=== PATIENT | female | born 1995 | race Caucasian/White ===

== ENCOUNTER 2021-12-28 18:16 | Emergency (ER) | payer BC ==
--- OUTSIDE RECORDS SUMMARY | 2021-12-28 18:19 | XMS REPORT | Continuity of Care Document ---
:[address] [facility] t Address [address] [place] [address] Care Team Providers Name Role Phone MARGAUX CARTER Primary Care Physician Unavailable GERARDO KIRKPATRICK Attending Clinician Unavailable Do More Attending Clinician DO SWEENEY Attending Clinician Unavailable Payers Payer Name Policy Type Policy Number Effective Date Expiration Date [facility] [id number] 2020 00:00:00 Problems Condition Condition Condition Status Onset Resolution Last Treating Co mments Source Name Details Category Date Date Treatment Clinician Date Acute Acute Disease Active NPI:183 midline midline 4-27 [id number] low back low back 00:00: pain with pain with 00 bilateral bilateral sciatica sciatica Sacral Sacral Disease Active NPI:183 pain pain 4-27 [id number] 00:00: 00 Attention Attention Disease Active NPI :183 deficit deficit 7-13 [id number] disorder disorder 00:00: (ADD) (ADD) 00 without without hyperactiv hyperactiv ity ity Allergies, Adverse Reactions, Alerts Allergy Allergy Status Severity Reaction(s) Onset Inactive Treating Comm ents Source Name Type Date Date Clinician Amoxicil Drug Active Other - See NPI :183 carter Intolera comments 12-14 [id number] 1 nce 00:00: 00 AMOXICIL DRUG Active Med Other-Cmnt NPI: 183 CARTER INGREDI 24 [id number] 00:00: 00 Social History Social Habit Start Date Stop Date Quantity Comments Source History SDOH NPI:[id number] Alcohol Frequency History SDOH NPI:[id number] 81 Alcohol Std Drinks History SDOH NPI:[id number] 81 Alcohol Binge Exposure to 2021-12-07 2021-12-17 Not sure NPI:[id number] 1 SARS-CoV-2 (event) 00:00:00 14:27:00 Alcohol intake 2021-12-14 2021-12-14 Current drinker of MAIL SORTER I:[id number] 00:00:00 00:00:00 alcohol (finding) Alcohol Comment 2015-11-06 2015-11-06 occasional NPI:[id number] 00:00:00 00:00:00 Tobacco use and 2015-11-06 2015-11-06 Never used NPI:[id number] exposure 00:00:00 00:00:00 Sex [birth year] NPI:[id number] 00:00:00 00:00:00 Smoking Status Start Date Stop Date Source Never smoker Medications Ordered Filled Start Stop Current Ordering Indication Dosage Frequency Signature Comments Components Source Medication Medication Date Date Medication? Clinician (SIG) Name Name cyclobenzap 2021- Yes [id number] 7.5mg Take 1 NPI:183 rine 7.5 mg 4-27 05-12 tablet by 13 [id number] tablet 00:00: 04:59 mouth 3 00 :00 (three) times daily as needed for Muscle Spasms for up to 14 days. cyclobenzap 2021- Yes [id number] 7.5mg Take 1 NPI:183 rine 7.5 mg 4-27 05-12 tablet by 13 06732 tablet 00:00: 04:59 mouth 3 00 :00 (three) times daily as needed for Muscle Spasms for up to 14 days. lidocaine 5 2021- Yes [id number] 1{patch Apply 1 NPI:183 % (700 4-27 05-05 } Patch to [id number] mg/patch) 00:00: 04:59 area(s) 2 patch 00 :00 (two) times daily for 14 doses. lidocaine 5 2021- Yes [id number] 1{patch Apply 1 NPI:183 % (700 4-27 05-05 } Patch to [id number] mg/patch) 00:00: 04:59 area(s) 2 patch 00 :00 (two) times daily for 14 doses. methylPREDN 2021- Yes [id number] Take by NPI:183 ISolone -16 01-03 mouth [id number] (MEDROL, 00:00: 04:59 SEE-INSTRU TOMÁS,) 4 mg 00 :00 CTIONS for tablets 5 days. follow package directions methylPREDN 2021- Yes [id number] Take by NPI:183 ISolone -16 01-03 mouth [id number] (MEDROL, 00:00: 04:59 SEE-INSTRU TOMÁS,) 4 mg 00 :00 CTIONS for tablets 5 days. follow package directions naproxen 2021- Yes [id number] 500mg Take 1 NPI:183 (NAPROSYN) -13 01-05 tablet by 131 8781 500 mg 00:00: 04:59 mouth 2 tablet 00 :00 (two) times daily with meals for 10 days. naproxen 2021- Yes [id number] 500mg Take 1 NPI:183 (NAPROSYN) -13 01-05 tablet by 131 8781 500 mg 00:00: 04:59 mouth 2 tablet 00 :00 (two) times daily with meals for 10 days. cyclobenzap 2021- No [id number] 5mg Take 1 NPI:183 rine 5 mg -14 12- tablet by 1318 781 tablet 00:00: 00:00 mouth 3 00 :00 (three) times daily as needed for Muscle Spasms. dextroamphe Yes [id number] 15mg Take 1 NPI:183 tamine-amph 4-18 tablet by 131 8781 etamine 15 00:00: mouth 2 mg tablet 00 (two) times daily. dextroamphe Yes [id number] 15mg Take 1 NPI:183 tamine-amph 4-18 tablet by 131 8781 etamine 15 00:00: mouth 2 mg tablet 00 (two) times daily. levonorgest Yes 1{tbl} Take 1 Tab NPI:183 rel-ethinyl 7-13 by mouth 1318 781 estradiol 13:13: daily. (AVIANE,EDA 20 SSE,LESSINA ) 0.1-20 mg-mcg per tablet levonorgest Yes 1{tbl} Take 1 Tab NPI:183 rel-ethinyl 7-13 by mouth 1318 781 estradiol 13:13: daily. (AVIANE,EDA 20 SSE,LESSINA ) 0.1-20 mg-mcg per tablet Vital Signs Vital Name Observation Time Observation Value Comments Source Systolic blood pressure 2021-12-17 19:20:00 114 mm[Hg] Diastolic blood 2021-12-17 19:20:00 72 mm[Hg] NPI:1 [id number] pressure Heart rate 2021-12-17 19:20:00 90 /min NPI:1831 [id number] Body temperature 2021-12-17 19:20:00 37.22 Steph Body height 2021-12-17 19:20:00 149.9 cm NPI:1831 [id number] Body weight 2021-12-17 19:20:00 61.236 kg NPI:1831 [id number] BMI 2021-12-17 19:20:00 27.27 kg/m2 NPI:1831 [id number] Oxygen saturation in 2021-12-17 19:20:00 99 /min Arterial blood by Pulse oximetry Procedures This patient has no known procedures. Encounters Start End Encounter Admission Attending Care Care Encounter Source Date/Time Date/Time Type Type Clinicians Facility Department ID 2021-12-29 2021-12-29 Outpatient GERARDO MURDOCK [facility] [id number] NPI:183 08:15:00 08:15:00 [id number] 2021-12-29 2021-12-29 Outpatient GERARDO MURDOCK [facility] [id number] NPI:183 08:15:00 08:15:00 [id number] 2021-12-19 2021-12-19 Reese Sweeney [facility] [id number] NPI:183 [id number] [place] [id number] JESSICA?BLEA [id number] EY 044 [facility] 2021-12-17 2021-12-17 Outpatient CHASE MCCORMACK [facility] [id number] NPI:183 15:00:00 23:59:00 DO [id number] 1 2021-12-17 2021-12-17 Office Zahra [facility] [id number] NPI:183 14:30:00 14:58:[address] [facility] [id number] [place] [id number] JESSICA?BLEA [id number] [place] [address] MED[facility] Results This patient has no known results.
[2021-12-28] MEDS ORDERED: MORPHINE 4 MG/ML SYR ONE (19:02)
[2021-12-28] MEDS ORDERED: dexAMETHasone 10 MG/ML VIAL ONE (19:03)
[2021-12-28] MEDS ORDERED: NA CHLORIDE 0.9% 1,000 ML ONE (19:03)
[2021-12-28] MEDS ORDERED: DIAZEPAM 10 MG/2 ML INJ SYRINGE ONE (19:03)
[2021-12-28] MEDS ORDERED: ONDANSETRON 4 MG/2 ML VIAL ONE (19:03)
[2021-12-28 19:05] LABS: Hematocrit 35.9 % (36.0-45.0); Lymphocytes % 17.7 % (15.3-44.8); MPV 9.7 fL (7.6-11.3); RBC Red Blood Cell Count 4.11 M/uL (3.86-4.86)
[2021-12-28 19:44] LABS: ALT/SGPT 19 U/L (12-78); AST/SGOT 16 U/L (15-37); Albumin 3.3 g/dL (3.4-5.0); Alkaline Phosphatase 44 U/L (45-117); BUN Blood Urea Nitrogen 13 mg/dL (7-18); Bicarbonate 25 mmol/L (21-32); Bilirubin Total 0.3 mg/dL (0.2-1.0); Glucose Level 86 mg/dL (74-106); Potassium 3.5 mmol/L (3.5-5.1); Protein, Total 5.9 g/dL (6.4-8.2); Sodium Level 139 mmol/L (136-145)
[2021-12-28] MEDS ORDERED: HYDROMORPHONE HCL 0.5 MG/0.5 ML INJ ONE (20:20)
[2021-12-28 20:50] LABS: Urine Blood 1+ (Negative); Urine Glucose Negative (Negative); Urine Protein Negative (Negative); Urine Specific Gravity 1.015 (1.005-1.030); Urine pH 7.5 (5.0-7.0)
--- NOTE | 2021-12-28 21:13 | RAD REPORT ---
EXAM DESCRIPTION: CTSpine Lumbar Wo Con12/28/2021 9:02 pm CLINICAL HISTORY: Back pain status post trauma COMPARISON: None TECHNIQUE: Computed axial tomography lumbar spine was obtained with coronal and sagittal reconstruct ion. All CT scans are performed using dose optimization technique as appropriate and may include automated exposure control or mA/KV adjustment according to patient size. FINDINGS: No fracture is seen. No dislocation is noted. Possible small right paracentral disc herniation L5-S1 Small umbilical hernia IMPRESSION: Negative for a lumbar fracture. Possible small right paracentral disc herniation L5-S1 If patient continues have symptoms to suggest spinal canal pathology MRI would be recommended
--- NOTE | 2021-12-28 23:35 | EDPHYS ---
Physician Documentation [facility] Name: Marissa Peck Age: 26 yrs Sex: Female : 1995 Arrival Date: 12/28/2021 Time: 18:18 Bed 18 Private MD: ED Physician Taqueria Martinez HPI: 12/28 18:33 This 26 yrs old Female presents to ER via EMS with complaints of Syncope. becca 18:33 The patient has experienced near-syncope, almost passed out, felt dizzy, felt faint. becca Onset: The symptoms/episode began/occurred just prior to arrival. Duration: This was a single episode, that lasted 20 second(s). Context: the episode(s) was witnessed, by family, mother. Associated injury: Back: decreased range of motion, pain. Associated signs and symptoms: Pertinent positives: back pain. Current symptoms:. 18:34 Severity of symptoms: At their worst the symptoms were moderate, in the emergency becca department the symptoms are unchanged. The patient has experienced similar episodes in the past, multiple times. Historical: - Allergies: 18:23 No Known Allergies; bp - Home Meds: 18:23 None [Active]; bp - PMHx: 18:23 None; bp - Immunization history:: Adult Immunizations up to date. - Social history:: Smoking status: Patient denies any tobacco usage or history of. - Family history:: not pertinent. ROS: 18:34 Constitutional: Negative for fever, chills, and weight loss, Eyes: Negative for injury, becca pain, redness, and discharge, ENT: Negative for injury, pain, and discharge, Neck: Negative for injury, pain, and swelling, Cardiovascular: Negative for chest pain, palpitations, and edema, Respiratory: Negative for shortness of breath, cough, wheezing, and pleuritic chest pain, Abdomen/GI: Negative for abdominal pain, nausea, vomiting, diarrhea, and constipation, : Negative for injury, bleeding, discharge, and swelling, MS/Extremity: Negative for injury and deformity, Skin: Negative for injury, rash, and discoloration, Neuro: Negative for headache, weakness, numbness, tingling, and seizure, Psych: Negative for depression, anxiety, suicide ideation, homicidal ideation, and hallucinations, Allergy/Immunology: Negative for hives, rash, and allergies, Endocrine: Negative for neck swelling, polydipsia, polyuria, polyphagia, and marked weight changes, Hematologic/Lymphatic: Negative for swollen nodes, abnormal bleeding, and unusual bruising. 18:34 Back: Positive for injury or acute deformity, decreased range of motion, pain at rest, pain with movement, of the lumbar area. Exam: 18:34 Constitutional: This is a well developed, well nourished patient who is awake, alert, becca and in no acute distress. Head/Face: Normocephalic, atraumatic. Eyes: Pupils equal round and reactive to light, extra-ocular motions intact. Lids and lashes normal. Conjunctiva and sclera are non-icteric and not injected. Cornea within normal limits. Periorbital areas with no swelling, redness, or edema. ENT: Nares patent. No nasal discharge, no septal abnormalities noted. Tympanic membranes are normal and external auditory canals are clear. Oropharynx with no redness, swelling, or masses, exudates, or evidence of obstruction, uvula midline. Mucous membranes moist. Neck: Trachea midline, no thyromegaly or masses palpated, and no cervical lymphadenopathy. Supple, full range of motion without nuchal rigidity, or vertebral point tenderness. No Meningismus. Chest/axilla: Normal chest wall appearance and motion. Nontender with no deformity. No lesions are appreciated. Cardiovascular: Regular rate and rhythm with a normal S1 and S2. No gallops, murmurs, or rubs. Normal PMI, no JVD. No pulse deficits. Respiratory: Lungs have equal breath sounds bilaterally, clear to auscultation and percussion. No rales, rhonchi or wheezes noted. No increased work of breathing, no retractions or nasal flaring. Abdomen/GI: Soft, non-tender, with normal bowel sounds. No distension or tympany. No guarding or rebound. No evidence of tenderness throughout. Pelvic Exam: Normal external genitalia. Speculum exam with closed cervical os, no discharge or bleeding noted. Bimanual exam with normal adnexa, no adnexal or cervical motion tenderness. Normal uterus. Female : Normal external genitalia. Skin: Warm, dry with normal turgor. Normal color with no rashes, no lesions, and no evidence of cellulitis. MS/ Extremity: Pulses equal, no cyanosis. Neurovascular intact. Full, normal range of motion. Neuro: Awake and alert, GCS 15, oriented to person, place, time, and situation. Cranial nerves II-XII grossly intact. Motor strength 5/5 in all extremities. Sensory grossly intact. Cerebellar exam normal. Normal gait. Psych: Awake, alert, with orientation to person, place and time. Behavior, mood, and affect are within normal limits. 18:34 Back: ROM is painful, normal spinal alignment noted, CVA tenderness, is absent, muscle spasm, is appreciated in the left low back, left mid back, right mid back and right low back. Vital Signs: 18:21 BP 106 / 76; Pulse 93; Resp 16; Temp 97.9; Pulse Ox 98% ; bp 23:25 Weight 75 kg; mw2 05 00:00 BP 110 / 70; Pulse 82; Resp 17; Pulse Ox 99% on R/A; kd3 MDM: 12/28 18:20 Patient medically screened. [facility] 18:36 Differential diagnosis: Fracture Joint Injury Neoplasm Obesity ruptured disc, spinal becca injury, sprain. Differential Diagnosis: vasovagal episode. Data reviewed: vital signs, nurses notes, EMS record, lab test result(s), radiologic studies, CT scan. Data interpreted: Pulse oximetry: on room air is 98 %. Counseling: I had a detailed discussion with the patient and/or guardian regarding: the historical points, exam findings, and any diagnostic results supporting the discharge/admit diagnosis, lab results, radiology results. 12/28 18:33 Order name: CBC with Diff; Complete Time: 19:27 [facility] 12/28 19:52 Interpretation: Normal except: WBC 11.4; HCT 35.9; KYLEIGH% 75.0; NEUT A 8.5. cp 12/28 18:33 Order name: Comprehensive Metabolic Panel; Complete Time: 19:52 [facility] 12/28 19:52 Interpretation: Normal except: CL 109; ALB 3.3; TP 5.9; CA 7.9; ALK 44. cp 12/28 18:33 Order name: Test, Serum; Complete Time: 19:32 becca 12/28 18:33 Order name: CT Lumbar Spine Wo Con; Complete Time: 21:24 [facility] 12/28 20:50 Order name: Urine Dipstick-Ancillary; Complete Time: 21:06 EDMS 12/28 22:29 Order name: COVID-19/FLU A+B (Document "Date of Onset" if Symptomatic) cp 12/28 18:33 Order name: Urine Dipstick-Ancillary (obtain specimen); Complete Time: 20:49 becca Administered Medications: 18:45 Drug: NS 0.9% 1000 ml Route: IV; Rate: 1 bolus; Site: right forearm; bp 12/29 00:10 Follow up: Response: No adverse reaction; IV Status: Completed infusion [facility] 12/28 18:50 Drug: Decadron - Dexamethasone 10 mg Route: IVP; Site: right forearm; bp 12/29 00:10 Follow up: Response: No adverse reaction [facility] 12/28 18:50 Drug: morphine 4 mg Route: IVP; Site: right forearm; bp 12/29 00:10 Follow up: Response: No adverse reaction [facility] 12/28 18:50 Drug: Zofran (Ondansetron) 4 mg Route: IVP; Site: right forearm; bp 12/29 00:09 Follow up: Response: No adverse reaction [facility] 12/28 18:50 Drug: Valium (diazepam) 2 mg Route: IVP; Site: right forearm; bp 12/29 00:09 Follow up: Response: No adverse reaction 3 12/28 18:50 Drug: Valium (diazepam) 2 mg Route: IVP; Site: right forearm; bp 12/29 00:09 Follow up: Response: No adverse reaction [facility] 12/28 20:34 Drug: Dilaudid (HYDROmorphone) 1 mg Route: IVP; Site: right antecubital; kd3 12/29 00:09 Follow up: Response: No adverse reaction; Pain is decreased kd3 Disposition Summary: 12/28/21 23:35 Transfer Ordered Transfer Location: [facility] cp Reason: Higher level of care cp Condition: Stable cp Problem: an ongoing problem cp Symptoms: have improved cp Accepting Physician: DR Adkins(12/29/21 00:12) kd3 Diagnosis - Low back pain cp Forms: - Medication Reconciliation Form cp - SBAR form cp Signatures: Dispatcher [employer] EDTaqueria Kang MD MD cha Page, Corey, PA PA cp Peltier, Brian, RN RN bp Doucette, Kyli, RN RN kd3 Jocelyn Suh PA PA sb3 Corrections: (The following items were deleted from the chart) 12/28 19:52 19:52 Normal except: CL 109. cp cp 12/29 00:12 12/28 23:35 DR Adkins cp kd3
--- NOTE | 2021-12-28 23:35 | ER ---
Nurse's Notes [facility] Name: Marissa Peck Age: 26 yrs Sex: Female : 1995 Arrival Date: 12/28/2021 Time: 18:18 Bed 18 Private MD: Diagnosis: Low back pain Presentation: 12/28 18:21 Chief complaint: EMS states: [facility] WHILE AMBULATING AT HOME. Coronavirus screen: At bp this time, the client does not indicate any symptoms associated with coronavirus-19. Ebola Screen: No symptoms or risks identified at this time. Initial Sepsis Screen: Does the patient meet any 2 criteria? No. Patient's initial sepsis screen is negative. Does the patient have a suspected source of infection? No. Patient's initial sepsis screen is negative. Risk Assessment: Do you want to hurt yourself or someone else? Patient reports no desire to harm self or others. Onset of symptoms is unknown. Care prior to arrival: Medication(s) given: 30 MG TORADOL IV initiated. 20 GA, in the right antecubital area. 18:21 Method Of Arrival: EMS: [facility] bp 18:21 Acuity: VANNESSA 3 bp Triage Assessment: 18:23 General: Appears distressed, uncomfortable, Behavior is cooperative, appropriate for bp age, anxious. Pain: Complains of pain in back. EENT: No deficits noted. Neuro: Reports a syncopal episode. Cardiovascular: Rhythm is sinus rhythm. Respiratory: No deficits noted. GI: No signs and/or symptoms were reported involving the gastrointestinal system. : No signs and/or symptoms were reported regarding the genitourinary system. Derm: No deficits noted. Musculoskeletal: Reports pain in back. Historical: - Allergies: 18:23 No Known Allergies; bp - Home Meds: 18:23 None [Active]; bp - PMHx: 18:23 None; bp - Immunization history:: Adult Immunizations up to date. - Social history:: Smoking status: Patient denies any tobacco usage or history of. - Family history:: not pertinent. Screenin:24 Abuse screen: Denies threats or abuse. Denies injuries from another. Nutritional bp screening: No deficits noted. Tuberculosis screening: No symptoms or risk factors identified. Fall Risk Fall in past 12 months (25 points). No secondary diagnosis (0 pts). IV access (20 points). Ambulatory Aid- None/Bed Rest/Nurse Assist (0 pts). Gait- Weak (10 pts.). Mental Status- Oriented to own ability (0 pts). Total Albert Fall Scale indicates High Risk Score (45 or more points). Fall prevention measures have been instituted. Side Rails Up X 2 Placed Close to Nursing Station Family Present and informed to notify staff if the need to leave the bedside As available patient and family educated on Fall Prevention Program and Strategies. Assessment: 18:24 General: SEE TRIAGE NOTE. bp 12/29 00:01 Neuro: Level of Consciousness is awake, alert, obeys commands, Oriented to person, kd3 place, time, situation. Cardiovascular: Patient's skin is warm and dry. Vital Signs: 12/28 18:21 BP 106 / 76; Pulse 93; Resp 16; Temp 97.9; Pulse Ox 98% ; bp 23:25 Weight 75 kg; mw2 12/29 00:00 BP 110 / 70; Pulse 82; Resp 17; Pulse Ox 99% on R/A; kd3 ED Course: 12/28 18:18 Patient arrived in ED. bp 18:20 Taqueria Martinez MD is Attending Physician. becca 18:23 Triage completed. bp 18:23 Arm band placed on. bp 18:24 Patient has correct armband on for positive identification. Bed in low position. Call bp light in reach. Side rails up X2. 18:25 Maintain EMS IV. Dressing intact. Good blood return noted. Site clean \T\ dry. Gauge \T\ bp site: 20 G R AC. 18:26 Omer Parker, RN is Primary Nurse. bp 19:20 Primary Nurse role handed off by Omer Parker, CINDY mw2 20:12 Clarice Nicole, CINDY is Primary Nurse. kd3 21:04 CT Lumbar Spine Wo Con In Process Unspecified. EDMS 22:31 initiated a transfer with Cecy from [facility] Transfer Center. mw2 23:08 administrative approval given by Cecy Sprague/ patient has been accepted to [facility] [place] to the ER/ Dr. Adkins accepted the patient in transfer/ report to be called to [phone]. 23:22 initiated a transfer with Zoë from [facility] [place]. mw2 23:28 [facility] declined due to capacity. mw2 12/29 00:01 No provider procedures requiring assistance completed. Patient transferred, IV remains kd3 in place. Administered Medications: 12/28 18:45 Drug: NS 0.9% 1000 ml Route: IV; Rate: 1 bolus; Site: right forearm; bp 12/29 00:10 Follow up: Response: No adverse reaction; IV Status: Completed infusion kd3 12/28 18:50 Drug: Decadron - Dexamethasone 10 mg Route: IVP; Site: right forearm; bp 12/29 00:10 Follow up: Response: No adverse reaction kd3 12/28 18:50 Drug: morphine 4 mg Route: IVP; Site: right forearm; bp 12/29 00:10 Follow up: Response: No adverse reaction kd3 12/28 18:50 Drug: Zofran (Ondansetron) 4 mg Route: IVP; Site: right forearm; bp 12/29 00:09 Follow up: Response: No adverse reaction kd3 12/28 18:50 Drug: Valium (diazepam) 2 mg Route: IVP; Site: right forearm; bp 12/29 00:09 Follow up: Response: No adverse reaction kd3 12/28 18:50 Drug: Valium (diazepam) 2 mg Route: IVP; Site: right forearm; bp 12/29 00:09 Follow up: Response: No adverse reaction kd3 12/28 20:34 Drug: Dilaudid (HYDROmorphone) 1 mg Route: IVP; Site: right antecubital; kd3 12/29 00:09 Follow up: Response: No adverse reaction; Pain is decreased kd3 Outcome: 12/28 23:35 ER care complete, transfer ordered by MD. dee 12/29 00:01 Transferred by ground EMS kd3 Condition: stable Discharge instructions given to patient, family, Instructed on the need for transfer, Demonstrated understanding of instructions. 00:12 Patient left the ED. kd3 Signatures: Dispatcher [employer] EDMS Taqueria Martinez MD MD cha Page, Corey, PA PA Omer Vu, RN RN Shannan Bahena mw2 Clarice Nicloe RN RN kd3
[2021-12-28 23:47] LABS: SARS-COV-2 RT PCR NEGATIVE (NEGATIVE)
[2021-12-29] MEDS ORDERED: HYDROMORPHONE HCL 0.5 MG/0.5 ML INJ ONE (00:19)
[2021-12-29 01:34] VITALS: TEMP 97.9
[2021-12-29 01:35] VITALS: BP 110/70; O2SAT 99
== END 2021-12-29 00:12 | disposition short-term general hospital (02) ==
LOC: ER 18:16
DX: M54.50 Low back pain, unspecified (principal); R55 Syncope and collapse; Z20.822 Contact with and (suspected) exposure to COVID-19
CPT/HCPCS: 85025; 36415; 84703; 81003; 80053; 0240U; 72131; 99285; J3360; J1100; J1170 ×2; J7030; J2405